=== PATIENT | male | born 1995 | race Two or more races ===

== ENCOUNTER 2016-10-18 14:17 | Emergency (ER) | payer OTHER ==
[~2016-10-18] VITALS: Ht 167.6 cm; Wt 81.6 kg
[2016-10-18] MEDS ORDERED: ONDANSETRON ODT 4 MG TAB.RAPDIS PO ONE (15:45)
[2016-10-18] MEDS ORDERED: ONDA4TAB10 SL (15:49)
--- NOTE | 2016-10-18 15:49 | PHYS DOC ---
Past Medical History Past Medical History: Hypothyroid Past Surgical History: No Surgical History Alcohol Use: Occasionally Drug Use: None Adult General Chief Complaint Chief Complaint: ABDOMINAL PAIN HPI HPI Patient is a 21 year old female who presents with mild bilateral upper abdominal pain that began yesterday after eating [place] food. Patient states he also vomited. Patient denies any fever. Review of Systems Review of Systems Constitutional: Denies fever or chills [] Eyes: Denies change in visual acuity, redness, or eye pain [] HENT: Denies nasal congestion or sore throat [] Respiratory: Denies cough or shortness of breath [] Cardiovascular: No additional information not addressed in HPI [] GI: Bilateral upper abdominal pain and vomiting : Denies dysuria or hematuria [] Musculoskeletal: Denies back pain or joint pain [] Integument: Denies rash or skin lesions [] Neurologic: Denies headache, focal weakness or sensory changes [] Endocrine: Denies polyuria or polydipsia [] Current Medications Current Medications Current Medications Medications (Trade) Dose Ordered Sig/Mindi Start Time Stop Time Status Last Admin Dose Admin Ondansetron HCl (Zofran Odt) 4 mg 1X ONCE 10/18/16 15:45 10/18/16 15:46 DC 10/18/16 16:01 4 MG Allergies Allergies Allergies Coded Allergies Type Severity Reaction Last Updated Verified No Known Drug Allergies 10/18/16 No Physical Exam Physical Exam Constitutional: Well developed, well nourished, no acute distress, non-toxic appearance. [] HENT: Normocephalic, atraumatic, bilateral external ears normal, oropharynx moist, no oral exudates, nose normal. [] Eyes: PERRLA, EOMI, conjunctiva normal, no discharge. [] Neck: Normal range of motion, no tenderness, supple, no stridor. [] Cardiovascular:Heart rate regular rhythm, no murmur [] Lungs & Thorax: Bilateral breath sounds clear to auscultation [] Abdomen: Bowel sounds normal, soft, no tenderness to bilateral upper or lower abdomen, negative Vega sign, negative obturator sign, negative Rovsing sign , no masses, no pulsatile masses. [] Skin: Warm, dry, no erythema, no rash. [] Back: No tenderness, no CVA tenderness. [] Extremities: No tenderness, no cyanosis, no clubbing, ROM intact, no edema. [] Neurologic: Alert and oriented X 3, normal motor function, normal sensory function, no focal deficits noted. [] Psychologic: Affect normal, judgement normal, mood normal. [] Current Patient Data Vital Signs Vital Signs Date Time Temp Pulse Resp B/P Pulse Ox O2 Delivery O2 Flow Rate FiO2 10/18/16 15:07 98.3 104 16 129/62 98 Room Air 98.3 EKG EKG [] Radiology/Procedures Radiology/Procedures [] Course & Med Decision Making Course & Med Decision Making Pertinent Labs and Imaging studies reviewed. (See chart for details) This is a well-appearing patient who presents today with bilateral upper abdominal pain with vomiting that began yesterday after eating [place] food. I highly suspect food poisoning, though a differential could also be acute cholecystitis though this is less likely considering patient does not have a positive Vega sign, abdominal limited ultrasound is negative for cholecystitis , gave patient results. Discharged with zofran. Instructed push fluids and maintain good hand hygiene. Follow-up with his own doctor in the next 2-3 days if symptoms continue. Dragon Disclaimer Dragon Disclaimer This electronic medical record was generated, in whole or in part, using a voice recognition dictation system. Departure Departure Impression: Primary Impression: Food poisoning Disposition: 01 HOME, SELF-CARE Condition: STABLE Referrals: JANEEN MOFFETT MD (PCP) Patient Instructions: Food Poisoning Additional Instructions: You were seen for abdominal pain with vomiting after eating [place] food, this is suspicious for food poisoning. The symptoms tend to run their own course. Push fluids, maintain very good hygiene at home. Come back to the ED if symptoms worsen otherwise follow-up with your doctor in the 1-3 days. Scripts Ondansetron (Zofran Odt)4 Mg Tab.rapdis1 Tab SL Q8HRS #15 TAB Prov:ANGELINA CASAS RONN 10/18/16 Problem Qualifiers Primary Impression: Food poisoning Encounter type: initial encounter Injury intent: undetermined intent Qualified Code: T62.94XA - Toxic effect of unspecified noxious substance eaten as food, undetermined, initial encounter ANGELINA CASAS RONN Oct 18, 2016 15:49
--- NOTE | 2016-10-18 16:20 | RAD ---
Right upper quadrant abdominal ultrasound, 10/18/2016: History: Pain, positive Vega's sign, nausea and vomiting The gallbladder is within normal limits in size. There is no sonographic evidence of cholelithiasis. The gallbladder wall is not thickened. No pericholecystic edema is seen. The patient was noted to be tender to transducer pressure over this region. The common hepatic duct is of normal caliber. No hepatic abnormality is seen. The pancreas was largely obscured by overlying bowel. IMPRESSION: No sonographic evidence of cholelithiasis or cholecystitis, although the patient was tender to transducer pressure over this region.
[2016-10-18 17:00] VITALS: BP 109/52
== END 2016-10-18 17:05 | disposition home or self-care (01) ==
LOC: ER 14:17
DX: T62.8X4A Toxic effect of other specified noxious substances eaten as food, undetermined, initial encounter (principal); E03.9 Hypothyroidism, unspecified; Y92.89 Other specified places as the place of occurrence of the external cause
CPT/HCPCS: 76705; 99284; Q0162